=== PATIENT | male | born 1945 | race Caucasian/White ===

== ENCOUNTER → 2023-09-25 | Outpatient (CLI) | payer OTHER ==
[~2023-09-25] MED LIST: AUD IH; AZIT500T2 PO; GUAI600T50 PO
[2023-09-25] MEDS: REGADENOSON 0.4 MG/5 ML PF SYG IVP SCH (10:27)
== END | disposition home or self-care (01) ==
LOC: EDSEX 08:22 → RAH 08:22
PROVIDERS: ATTEND Internal Medicine Cardiovascular Disease
DX: I25.10 Atherosclerotic heart disease of native coronary artery without angina pectoris (principal)
CPT/HCPCS: 78452; 96374; 93017; J2785; A9500 ×2

== ENCOUNTER 2023-09-26 15:40 | Emergency (ER) | payer OTHER ==
[~2023-09-26] VITALS: Ht 172.7 cm; Wt 88.5 kg
[2023-09-26 16:01] LABS: BASOPHILS # (AUTO) 0.05 K/uL (0.00-0.20); BASOPHILS % (AUTO) 0.5 % (0.0-5.0); EOSINOPHILS # (AUTO) 0.65 K/uL (0.00-0.70); EOSINOPHILS % (AUTO) 6.1 % (0.0-8.0); HEMATOCRIT 33.1 % (42-54); IMMATURE GRANULOCYTE ABSOLUTE 0.07 K/uL (0-1); LYMPHOCYTES # (AUTO) 0.8 K/uL (1.0-4.8); LYMPHOCYTES % (AUTO) 7.1 % (21.0-51.0); MEAN CORPUSCULAR HEMOGLOBIN 34.1 pg (27.0-33.0); MEAN CORPUSCULAR HGB CONC 33.2 g/dL (32.0-36.0); MEAN CORPUSCULAR VOLUME 102.5 fL (79-99); MONOCYTES # (AUTO) 0.7 K/uL (0.1-1.0); MONOCYTES % (AUTO) 6.8 % (3.0-13.0); NEUTROPHILS # (AUTO) 8.4 K/uL (1.8-7.7); NEUTROPHILS % (AUTO) 78.8 % (40.0-77.0); PLATELET COUNT (AUTO) 225 K/uL (130-400); RED BLOOD CELL COUNT(AUTO) 3.23 MIL/uL (4.50-6.20); RED CELL DISTRIBUTION WIDTH 14.2 % (11.0-15.5); WHITE BLOOD COUNT (AUTO) 10.7 K/uL (4.8-10.8)
[2023-09-26 16:12] LABS: CREATININE 1.8 mg/dL (0.5-1.5); POTASSIUM 3.7 mmol/L (3.5-5.1)
[2023-09-26 16:17] LABS: ALBUMIN 3.7 g/dL (3.5-5.0); BILIRUBIN,TOTAL 0.3 mg/dL (0.2-1.0); TOTAL PROTEIN, SERUM 7.5 g/dL (6.0-8.3)
[2023-09-26 16:27] LABS: RAPID GROUP A STREP negative (NEGATIVE)
[2023-09-26] MEDS: AZITHROMYCIN 250 MG TABLET PO ONE (16:35)
[2023-09-26] MEDS: GUAIFENESIN 600 MG TABLET.ER PO ONE (16:35)
[2023-09-26] MEDS: ASPIRIN 325MG TAB PO ONE (16:35)
[2023-09-26 16:36] LABS: SARS-CoV-2, RNA, NAAT NEGATIVE SARS CoV-2 (NEGATIVE)
[2023-09-26] MEDS: NITROGLYCERIN 1GM OINT 1 INCH/1GM TD ONE (16:37)
[2023-09-26 16:41] LABS: INFLUENZA TYPE A Negative For Type A (NEGATIVE); INFLUENZA TYPE B Negative For Type B (NEGATIVE)
[2023-09-26 16:54] VITALS: BP 172/63; O2SAT 96
[2023-09-26] MEDS: ALBUTEROL 0.083% 2.5 MG/3 ML INH IH ONE (17:13)
[2023-09-26 17:14] VITALS: PULSE 79; RESP 18
[2023-09-26] MEDS ORDERED: GUAI600T50 PO (18:20)
[2023-09-26] MEDS ORDERED: AZIT500T2 PO (18:20)
[2023-09-26] MEDS ORDERED: AUD IH (18:20)
== END 2023-09-26 18:45 | disposition home or self-care (01) ==
LOC: EDH 15:40
DX: J20.8 Acute bronchitis due to other specified organisms (principal); E11.9 Type 2 diabetes mellitus without complications; E78.00 Pure hypercholesterolemia, unspecified; I10 Essential (primary) hypertension; Z90.49 Acquired absence of other specified parts of digestive tract; Z20.822 Contact with and (suspected) exposure to COVID-19
CPT/HCPCS: 36415; 71045; 71250; 80053; 85025; 87635; 87804; 87880; 93005; 94640

== ENCOUNTER 2023-10-19 10:32 | Day surgery (SDC) | payer OTHER ==
[2023-10-19] VITALS (16 sets, daily range): BP systolic 129–180; BP diastolic 44–74; PULSE 52–64; RESP 15–20
[~2023-10-19] VITALS: Ht 162.6 cm; Wt 87.3 kg
[~2023-10-19 10:32] MED LIST changes: +ALLO100T PO; +ASPI-1005 PO; +ATOR40TA71 PO; -AUD IH; -AZIT500T2 PO; +CETI10TA57 PO; +FERR324T4 PO; +FOLI0.8T2 PO; +FURO20TA4 PO; -GUAI600T50 PO; +INSU100C6 SQ; +LEVO112T7 PO; +METO-391 PO; +MIRT-22 PO; +PANT40TA54 PO; +PRAZ1CAP5 PO; +SEVE800T27 PO
[2023-10-19 11:14] LABS: HEMATOCRIT 35.7 % (36-48); MEAN CORPUSCULAR HGB CONC 32.2 g/dL (32.0-36.0); MEAN CORPUSCULAR VOLUME 102.6 fL (79-99); RED BLOOD CELL COUNT(AUTO) 3.48 MIL/uL (4.00-5.50); RED CELL DISTRIBUTION WIDTH 12.8 % (11.0-15.5); WHITE BLOOD COUNT (AUTO) 6.8 K/uL (4.8-10.8)
[2023-10-19 11:22] LABS: CREATININE 2.5 mg/dL (0.5-1.0); POTASSIUM 4.4 mmol/L (3.5-5.1)
[2023-10-19 11:38] LABS: INR <= 0.93 (0.85-1.15); PROTHROMBIN TIME 10.4 SEC (9.6-11.6)
[2023-10-19] MEDS ORDERED: CEFAZOLIN SODIUM 1 GM VIAL ONE (11:54)
[2023-10-19] MEDS: CEFAZOLIN SODIUM 2 GM VIAL ONE (12:36)
[2023-10-19] MEDS: 0.9% NACL 500ML IV.SOLN 500 ML IV ONE (12:36)
[2023-10-19] MEDS ORDERED: FENTANYL CITRATE PF 50 MCG/1 ML 2ML VIAL ONE (12:44)
[2023-10-19] MEDS ORDERED: ROCURONIUM BROMIDE 10MG/1ML 5ML VL ONE (12:44)
[2023-10-19] MEDS ORDERED: PROPOFOL 10 MG/ML 20ML VIAL IV ONE (12:44)
[2023-10-19] MEDS ORDERED: LIDOCAINE PF 100MG/5ML (2%) SYRINGE 5ML ONE (12:44)
[2023-10-19] MEDS: LIDOCAINE HCL 1% 20 ML VIAL ONE (13:15)
[2023-10-19] MEDS: BUPIVACAINE/PF 0.5% 30ML VIAL ONE (13:15)
[2023-10-19] MEDS ORDERED: ONDANSETRON 4MG INJ ONE (13:31)
[2023-10-19] MEDS: ONDANSETRON 4MG INJ ONE (14:41)
== END 2023-10-19 15:25 | disposition home or self-care (01) ==
LOC: EDSEX 10:32 → DAH 10:32
PROVIDERS: ATTEND Thoracic Surgery (Cardiothoracic Vascular Surgery)
DX: E11.22 Type 2 diabetes mellitus with diabetic chronic kidney disease (principal); I12.0 Hypertensive chronic kidney disease with stage 5 chronic kidney disease or end stage renal disease; N18.6 End stage renal disease; I45.10 Unspecified right bundle-branch block; F17.200 Nicotine dependence, unspecified, uncomplicated; E78.5 Hyperlipidemia, unspecified; J43.9 Emphysema, unspecified; E03.9 Hypothyroidism, unspecified; M19.90 Unspecified osteoarthritis, unspecified site; Z79.01 Long term (current) use of anticoagulants; Z79.899 Other long term (current) drug therapy; Z90.710 Acquired absence of both cervix and uterus; Z90.49 Acquired absence of other specified parts of digestive tract; Z79.82 Long term (current) use of aspirin; Z99.2 Dependence on renal dialysis
CPT/HCPCS: 36821; 80048; 85027; 85610; 85730; 86850; 86900; 86901; 82948 ×2; 36415; 71045; 93005; A4663; A6207; J7030; A4452; J7040; J3010; J0690 ×2; J3490; J2001; J2704; J2405 ×2; J0665; J1644; A4649 ×2; C1713 ×2; A4930 ×2; A4215; A4223; A4222; A4221; G0168

== ENCOUNTER 2023-10-30 12:53 | Emergency (ER) | payer OTHER ==
[~2023-10-30] VITALS: Ht 172.7 cm; Wt 87.5 kg
[2023-10-30 14:48] LABS: BASOPHILS # (AUTO) 0.03 K/uL (0.00-0.20); BASOPHILS % (AUTO) 0.5 % (0.0-5.0); EOSINOPHILS # (AUTO) 0.43 K/uL (0.00-0.70); EOSINOPHILS % (AUTO) 7.7 % (0.0-8.0); HEMATOCRIT 32.3 % (36-48); IMMATURE GRANULOCYTE ABSOLUTE 0.02 K/uL (0-1); LYMPHOCYTES # (AUTO) 0.9 K/uL (1.0-4.8); LYMPHOCYTES % (AUTO) 16.8 % (21.0-51.0); MEAN CORPUSCULAR HEMOGLOBIN 32.3 pg (27.0-33.0); MEAN CORPUSCULAR HGB CONC 31.9 g/dL (32.0-36.0); MEAN CORPUSCULAR VOLUME 101.3 fL (79-99); MONOCYTES # (AUTO) 0.6 K/uL (0.1-1.0); MONOCYTES % (AUTO) 11.3 % (3.0-13.0); NEUTROPHILS # (AUTO) 3.5 K/uL (1.8-7.7); NEUTROPHILS % (AUTO) 63.3 % (40.0-77.0); PLATELET COUNT (AUTO) 241 K/uL (130-400); RED BLOOD CELL COUNT(AUTO) 3.19 MIL/uL (4.00-5.50); RED CELL DISTRIBUTION WIDTH 13.1 % (11.0-15.5); WHITE BLOOD COUNT (AUTO) 5.6 K/uL (4.8-10.8)
[2023-10-30 15:03] LABS: CREATININE 2.4 mg/dL (0.5-1.0)
[2023-10-30 15:09] LABS: INR <= 0.93 (0.85-1.15)
[2023-10-30 15:10] LABS: ALBUMIN 3.4 g/dL (3.5-5.0); BILIRUBIN,TOTAL 0.3 mg/dL (0.2-1.0); PARTIAL THROMBOPLASTIN TIME 30.5 SEC (26.3-35.5); TOTAL PROTEIN, SERUM 7.2 g/dL (6.0-8.3)
[2023-10-30 15:35] VITALS: BP 174/73; PULSE 71; RESP 15; O2SAT 96
[2023-10-30] MEDS: ALTEPLASE 2MG VIAL 2 MG/VIAL VIAL IVCATH ONE ×2 (17:09→17:10)
== END 2023-10-30 17:24 | disposition left against medical advice (07) ==
LOC: EDH 12:53
DX: T82.49XA Other complication of vascular dialysis catheter, initial encounter (principal); E11.9 Type 2 diabetes mellitus without complications; E78.00 Pure hypercholesterolemia, unspecified; I10 Essential (primary) hypertension; Z79.4 Long term (current) use of insulin; Z79.82 Long term (current) use of aspirin; Z90.49 Acquired absence of other specified parts of digestive tract; Z90.710 Acquired absence of both cervix and uterus; V00-Y99 External causes of morbidity; Y92.89 Other specified places as the place of occurrence of the external cause
CPT/HCPCS: 36415; 80053; 85025; 85610; 85730; J2997; J1644

== ENCOUNTER 2023-10-31 15:05 | Emergency (ER) | payer MEDICARE, OTHER ==
[~2023-10-31] VITALS: Ht 172.7 cm; Wt 88.0 kg
[2023-10-31 15:13] VITALS: BP 165/74; PULSE 82; RESP 16
[2023-10-31 16:52] LABS: HEMATOCRIT 31.7 % (36-48); MEAN CORPUSCULAR HEMOGLOBIN 33.3 pg (27.0-33.0); MEAN CORPUSCULAR HGB CONC 33.1 g/dL (32.0-36.0); MEAN CORPUSCULAR VOLUME 100.6 fL (79-99); RED BLOOD CELL COUNT(AUTO) 3.15 MIL/uL (4.00-5.50); RED CELL DISTRIBUTION WIDTH 13.2 % (11.0-15.5); WHITE BLOOD COUNT (AUTO) 6.2 K/uL (4.8-10.8)
[2023-10-31 16:57] LABS: CREATININE 2.2 mg/dL (0.5-1.0)
[2023-10-31 17:01] LABS: ALBUMIN 3.4 g/dL (3.5-5.0); BILIRUBIN,TOTAL 0.3 mg/dL (0.2-1.0); TOTAL PROTEIN, SERUM 7.3 g/dL (6.0-8.3)
== END 2023-10-31 18:34 | disposition left against medical advice (07) ==
LOC: EDH 15:05
DX: T82.41XA Breakdown (mechanical) of vascular dialysis catheter, initial encounter (principal); I12.9 Hypertensive chronic kidney disease with stage 1 through stage 4 chronic kidney disease, or unspecified chronic kidney disease; E11.22 Type 2 diabetes mellitus with diabetic chronic kidney disease; N18.9 Chronic kidney disease, unspecified; E78.00 Pure hypercholesterolemia, unspecified; Z79.4 Long term (current) use of insulin; Z79.82 Long term (current) use of aspirin; Z90.49 Acquired absence of other specified parts of digestive tract; Z90.710 Acquired absence of both cervix and uterus
CPT/HCPCS: 36415; 80053; 85027

== ENCOUNTER 2024-02-02 11:42 | Observation (INO) | payer OTHER ==
[~2024-02-02] VITALS: Ht 167.6 cm; Wt 93.0 kg
[2024-02-02] VITALS (17 sets, daily range): BP systolic 102–154; BP diastolic 41–103; PULSE 54–73; RESP 18–24; TEMP 96.9–97; O2SAT 97
[2024-02-02 12:45] LABS: BASOPHILS # (AUTO) 0.03 K/uL (0.00-0.20); BASOPHILS % (AUTO) 0.2 % (0.0-5.0); EOSINOPHILS # (AUTO) 0.01 K/uL (0.00-0.70); EOSINOPHILS % (AUTO) 0.1 % (0.0-8.0); HEMATOCRIT 27.5 % (36-48); IMMATURE GRANULOCYTE ABSOLUTE 0.15 K/uL (0-1); LYMPHOCYTES # (AUTO) 1.2 K/uL (1.0-4.8); LYMPHOCYTES % (AUTO) 9.3 % (21.0-51.0); MEAN CORPUSCULAR HGB CONC 30.5 g/dL (32.0-36.0); MEAN CORPUSCULAR VOLUME 98.2 fL (79-99); MONOCYTES # (AUTO) 1.7 K/uL (0.1-1.0); MONOCYTES % (AUTO) 12.9 % (3.0-13.0); NEUTROPHILS # (AUTO) 10.2 K/uL (1.8-7.7); NEUTROPHILS % (AUTO) 76.4 % (40.0-77.0); NUCLEATED RED BLOOD CELLS 0.5 % (0.0-0.19); PLATELET COUNT (AUTO) 330 K/uL (130-400); RED CELL DISTRIBUTION WIDTH 18.6 % (11.0-15.5); WHITE BLOOD COUNT (AUTO) 13.3 K/uL (4.8-10.8)
[2024-02-02 12:59] LABS: ALBUMIN 3.8 g/dL (3.5-5.0); BILIRUBIN,TOTAL 1.1 mg/dL (0.2-1.0); CREATININE 4.7 mg/dL (0.5-1.0); TOTAL PROTEIN, SERUM 7.7 g/dL (6.0-8.3)
[2024-02-02 13:02] LABS: POTASSIUM 7.7 mmol/L (3.5-5.1)
[2024-02-02] MEDS ORDERED: TRAMADOL HCL 50 MG TABLET PO PRN (13:30)
[2024-02-02] MEDS ORDERED: HYDRALAZINE 20MG/ML VIAL IV PRN (13:30)
[2024-02-02] MEDS: DEXTROSE 50%-WATER 25 GM/50 ML VIAL IV ONE (13:30)
[2024-02-02] MEDS ORDERED: OXYCODONE/ACETAMIN 5/325MG TAB PO PRN (13:30)
[2024-02-02] MEDS: ONDANSETRON 4MG INJ IVP ONE (13:30)
[2024-02-02] MEDS ORDERED: MAGNESIUM 2GM PREMIX 50ML 50 ML IV PRN (13:30)
[2024-02-02] MEDS ORDERED: DEXTROSE 50%-WATER 50 ML DISP.SYRIN IV PRN (13:30)
[2024-02-02] MEDS ORDERED: GLUCAGON 1MG KIT 1 MG ML IM PRN (13:30)
[2024-02-02] MEDS ORDERED: ALBUTEROL 0.083% 2.5 MG/3 ML INH IH SCH (13:30)
[2024-02-02] MEDS: MORPHINE 2 MG SYG IVP ONE (13:31)
[2024-02-02] MEDS: KAYEXALATE 15GM/60ML PO SCH (13:31)
[2024-02-02] MEDS: CALCIUM GLUC 1GM 1 GM in 0.9%NACL 100ML 100 ML IV ONE (13:31)
[2024-02-02] MEDS: ALBUTEROL 0.083% 2.5 MG/3 ML INH IH ONE (13:34)
[2024-02-02] MEDS: INSULIN HUMULIN R 100 UNIT/ML 3ML IV ONE (13:52)
[2024-02-02] MEDS: DEXTROSE 50%-WATER 50 ML DISP.SYRIN IV ONE (13:53)
[2024-02-02] MEDS ORDERED: VANCOMYCIN PROTOCOL PER PHARMACY IV SCH (16:00)
[2024-02-02] MEDS: INSULIN HUMULIN R 100 UNIT/ML 3ML SQ SCH (16:30)
[2024-02-02] MEDS: 0.9%NACL 1000ML 1,000 ML IV SCH (17:04)
[2024-02-02] MEDS: HEPARIN 5,000 UNIT VIAL IJ SCH ×2 (17:07→20:50)
[2024-02-02] MEDS: KAYEXALATE 15GM/60ML ONE (17:08)
[2024-02-02] MEDS: EPOETIN ALFA-EPBX (NON-ESRD) 10,000 UNIT/ML VIAL SQ SCH (17:09)
[2024-02-02] MEDS: VANCOMYCIN 1.75 GM/250 ML BAG 250 ML IV ONE (17:09)
[2024-02-02] MEDS: SEVELAMER HCL 800 MG TABLET PO SCH (17:10)
[2024-02-02] MEDS ORDERED: GENT30OI2 TP (19:11)
[2024-02-02] MEDS ORDERED: LEVO125C4 PO (19:11)
[2024-02-02] MEDS ORDERED: GABA300C PO (19:11)
[2024-02-02] MEDS ORDERED: TORS20TA4 PO (19:11)
[2024-02-02] MEDS ORDERED: METO-409 PO (19:11)
[2024-02-02] MEDS ORDERED: TRAZ-185 PO (19:11)
[2024-02-02] MEDS ORDERED: METO-408 PO (19:11)
[2024-02-02] MEDS: ATORVASTATIN 40 MG TABLET PO SCH (20:45)
[2024-02-02] MEDS: Prazosin HCl 1 MG PO SCH (20:45)
[2024-02-02] MEDS: MIRTAZAPINE 15 MG TABLET PO SCH (20:45)
[2024-02-02] MEDS: FAMOTIDINE 20MG VIAL IV SCH (20:45)
[2024-02-02] MEDS: HEPARIN 5,000 UNIT VIAL SQ SCH (20:45)
[2024-02-02] MEDS: MIDODRINE HCL 5 MG TABLET PO SCH (20:45)
[2024-02-03] MEDS: LEVOTHYROXINE 112 MCG TABLET PO SCH (06:05)
[2024-02-03 06:36] LABS: HEPATITIS B SURFACE ANTIGEN Non-Reactive (Nonreactive)
[2024-02-03 06:37] LABS: HEPATITIS B CORE AB TOTAL Non-Reactive (Nonreactive); HEPATITIS B SURFACE ANTIBODY Positive (Reactive)
[2024-02-03] MEDS ORDERED: Vitamin B Complex/Vit C/Folic Acid PO SCH (09:00)
[2024-02-03] MEDS ORDERED: ALLOPURINOL 100 MG TABLET PO SCH (09:00)
[2024-02-03] MEDS ORDERED: ASPIRIN 81MG CHEW TAB PO SCH (09:00)
[2024-02-03] MEDS ORDERED: FUROSEMIDE 20 MG TABLET PO SCH (09:00)
[2024-02-03] MEDS ORDERED: PANTOPRAZOLE 40 MG TAB DR PO SCH (09:00)
[2024-02-03] MEDS ORDERED: CETIRIZINE HCL 5 MG TABLET PO SCH (09:00)
[2024-02-03] MEDS ORDERED: METOPROLOL SUCCINATE 25 MG TAB.SR.24H PO SCH (09:00)
[2024-02-03] MEDS ORDERED: FERROUS SULFATE 325 MG TABLET.DR PO SCH (09:00)
[2024-02-03] MEDS ORDERED: VANCOMYCIN 750MG VIAL IVPB SCH (16:00)
== END 2024-02-03 06:54 | disposition left against medical advice (07) ==
LOC: EDH 11:42 → INTOOBSV 13:30 → EDHIP 13:30
PROVIDERS: ADMIT Hospitalist; ATTEND Hospitalist
DX: I12.0 Hypertensive chronic kidney disease with stage 5 chronic kidney disease or end stage renal disease (principal); E11.22 Type 2 diabetes mellitus with diabetic chronic kidney disease; N18.6 End stage renal disease; E87.6 Hypokalemia; E11.649 Type 2 diabetes mellitus with hypoglycemia without coma; D63.1 Anemia in chronic kidney disease; K59.00 Constipation, unspecified; E03.9 Hypothyroidism, unspecified; E66.01 Morbid (severe) obesity due to excess calories; K29.70 Gastritis, unspecified, without bleeding; E78.00 Pure hypercholesterolemia, unspecified; E87.5 Hyperkalemia; E87.1 Hypo-osmolality and hyponatremia; R00.1 Bradycardia, unspecified; D72.829 Elevated white blood cell count, unspecified; I95.9 Hypotension, unspecified; R79.89 Other specified abnormal findings of blood chemistry; F17.210 Nicotine dependence, cigarettes, uncomplicated; I25.2 Old myocardial infarction; I51.7 Cardiomegaly; I48.91 Unspecified atrial fibrillation; R62.7 Adult failure to thrive; S41.112A Laceration without foreign body of left upper arm, initial encounter; S41.111A Laceration without foreign body of right upper arm, initial encounter; S81.812A Laceration without foreign body, left lower leg, initial encounter; S81.811A Laceration without foreign body, right lower leg, initial encounter; S20.219A Contusion of unspecified front wall of thorax, initial encounter; I25.10 Atherosclerotic heart disease of native coronary artery without angina pectoris; Z99.2 Dependence on renal dialysis; Z79.4 Long term (current) use of insulin; Z90.49 Acquired absence of other specified parts of digestive tract; Z88.8 Allergy status to other drugs, medicaments and biological substances; Z90.710 Acquired absence of both cervix and uterus; Z68.33 Body mass index [BMI] 33.0-33.9, adult; W01.0XXA Fall on same level from slipping, tripping and stumbling without subsequent striking against object, initial encounter; Y93.89 Activity, other specified; Y92.89 Other specified places as the place of occurrence of the external cause; Y99.8 Other external cause status
CPT/HCPCS: 96372; 96366; 96375 ×2; 96367; 84484; 80053; 85025; 87040 ×4; 87086; 87186; 82948 ×2; 86706; 87340; 86704; 36415; 71045; 70450; 74176; 93880; 96365; 99291; 93005; 94640; 90935; G0378 ×13; J3490; J2270; J7070 ×2; J0612; J2405; J1644 ×3; J1815; Q5106; J3370; G0257

== ENCOUNTER → 2024-05-30 | Outpatient (CLI) | payer OTHER ==
[~2024-05-30] MED LIST changes: -FERR324T4 PO; -FOLI0.8T2 PO; +FOLI0.8T53 PO; -FURO20TA4 PO; +GABA300C PO; -INSU100C6 SQ; +LEVO112C4 PO; -LEVO112T7 PO; -MIRT-22 PO; +MIRT-93 PO; -PANT40TA54 PO; -PRAZ1CAP5 PO; -SEVE800T27 PO
== END | disposition home or self-care (01) ==
LOC: SHCH 08:49
PROVIDERS: ATTEND Internal Medicine Cardiovascular Disease
DX: I08.3 Combined rheumatic disorders of mitral, aortic and tricuspid valves (principal); I11.9 Hypertensive heart disease without heart failure; I42.9 Cardiomyopathy, unspecified; I48.91 Unspecified atrial fibrillation; E11.9 Type 2 diabetes mellitus without complications; E78.5 Hyperlipidemia, unspecified
CPT/HCPCS: 93306

== ENCOUNTER 2024-06-17 11:42 | Emergency (ER) | payer OTHER ==
[~2024-06-17] VITALS: Ht 172.7 cm; Wt 93.9 kg
--- NOTE | 2024-06-17 12:00 | ERN ---
ED Note History of Present Illness Stated Complaint: WEAKNESS Chief Complaint: Weakness Time Seen by MD: 11:45 Dictation: PATIENT IS A 79-YEAR-OLD FEMALE COMING IN TODAY FROM HOME VIA EMS WITH COMPLAINTS OF HAVING A NEAR SYNCOPAL EPISODE ONSET AT 04:00 HOURS LAST NIGHT. PER EMS, PATIENT WAS GETTING READY TO START HER HOME HEMODIALYSIS WITH A LEFT FISTULA THAT IS IN PLACE WITH A SON WHO WAS AT HOME TOLD EMS THAT SHE HAD A NEAR SYNCOPAL EPISODE. SHE DID NOT LOSE CONSCIOUSNESS NO NAUSEA VOMITING NO CHEST PAIN NO BACK PAIN. HE DID NOT NOTIFY EMS WHEN SHE HAD THE SYNCOPAL EPISODE AND INSTEAD CALLED THIS MORNING. YOUR BURNING Allergies: Coded Allergies: carisoprodol (Unverified Allergy, Unknown, 09/25/23) nicotine (Unverified Allergy, Unknown, RASH, 05/23/24) SKIN BREAKDOWN Home Meds Reported Medications Folic Acid/Vit B Complex and C (Nephro Vitamins Tablet) 0.8 Mg Tablet, 0.8 MG PO DAILY, TAB 05/22/24 Metoprolol Succinate (Metoprolol Succinate) 50 Mg Tab.er.24h, 50 MG PO DAILY, TAB 04/18/24 Levothyroxine Sodium (Levothyroxine) 112 Mcg Capsule, 112 MCG PO DAILY, CAP 04/18/24 Mirtazapine (Mirtazapine) 30 Mg Tablet, 30 MG PO HS, TAB 04/18/24 Gabapentin (Neurontin) 300 Mg Capsule, 300 MG PO HS, CAP 02/02/24 Allopurinol (Allopurinol) 100 Mg Tablet, 100 MG PO AM, TAB 10/16/23 Cetirizine HCl (Cetirizine HCl) 10 Mg Tablet, 10 MG PO AM, TAB 10/16/23 Aspirin (ASPIRIN 81MG CHEW TAB) 81 Mg Tab.chew, 81 MG PO DAILY, TAB.CHEW 10/16/23 Atorvastatin Calcium (Atorvastatin Calcium) 40 Mg Tablet, 40 MG PO HS, TAB 10/16/23 Past Medical History Past Medical History: High Cholesterol, Hypertension, Other Additional Past Medical Hx: CKD ON DIALYSIS Surgical History: Hysterectomy, Cholecystectomy, LAVA Surgical History Other: L ARM FISTULA Family History: Negative Social History: Smokers History: Not Applicable RN Note Reviewed/Agreed w/PFSH: Yes Review of System Dictation CONSTITUTIONAL: NEGATIVE EXCEPT FOR HPI NEAR-SYNCOPE HEAD/FACE: NEGATIVE EXCEPT FOR HPI EENT: NEGATIVE EXCEPT FOR HPI RESPIRATORY: NEGATIVE EXCEPT FOR HPI GASTROINTESTINAL/ABDOMINAL: NEGATIVE EXCEPT FOR HPI GENITOURINARY: NEGATIVE EXCEPT FOR HPI MUSCULOSKELETAL: NEGATIVE EXCEPT FOR HPI INTEGUMENTARY: NEGATIVE EXCEPT FOR HPI LEFT ARM FISTULA WITH GOOD THRILL AND BRUIT NEUROLOGICAL/PSYCH: NEGATIVE EXCEPT FOR HPI HEMATOLOGIC/LYMPHATIC: NEGATIVE EXCEPT FOR HPI ALL SYSTEMS NEGATIVE, EXCEPT NOTED ABOVE. 13 POINT REVIEW OF SYSTEMS ASSESSED AND ALL NEGATIVE EXCEPT FOR ABOVE. Initial Vital Sign VS Vital Signs Date Time Temp Pulse Resp B/P (MAP) Pulse Ox O2 Delivery O2 Flow Rate FiO2 06/17/24 11:43 98.1 60 18 100/47 98 Room Air* 0 21 Physical Exam Dictation VITAL SIGNS REVIEWED NO PAIN AT THIS TIME GENERAL APPEARANCE: ALERT, ORIENTED X 3, NO ACUTE DISTRESS, WELL DEVELOPED, NOURISHED. HEAD AND FACE: NON-TRAUMATIC. EYES: PERRL, PINK CONJUNCTIVAS, EYELID NO TRAUMA, ANTERIOR CHAMBER WITH ARCUS SENILIS. EARS: PINNAS INTACT AND NO SIGNS OF TRAUMA OR ERYTHEMA EAR CANALS CLEAR AND NO DISCHARGE TM NO ERYTHEMA NOSE: NO DISCHARGE, NO BLEEDING. OROPHARYNX: MOUTH NORMAL, TONGUE PINK, PHARYNX CLEAR,NO ERYTHEMA, TONSILS NO EXUDATES, NO ABSCESSES NOTED, MUCOUS MEMBRANE MOIST NECK: SUPPLE, NON-TENDER, NO THYROMEGALY, NO MASSES, NO JVD, NO BRUITS BREAST:DEFERRED CHEST:NO TENDERNESS, NO CREPITUS, NO PARADOXICAL MOVEMENT, NO RETRACTIONS LUNGS:CLEAR, WELL-VENTILATED, SYMMETRIC, NO RALES, NO WHEEZING, NO RHONCHI, NO STRIDOR, GOOD BREATH SOUNDS BILATERALLY HEART: REGULAR RATE, REGULAR RHYTHM, NO MURMUR, NO GALLOPS VASCULAR: LEFT ARM FISTULA WITH GOOD THRILL AND BRUIT NOTED ABDOMEN: SOFT, POSITIVE BOWEL SOUNDS, NONDISTENDED, NO GUARDING, NONTENDER, NO REBOUND, NO MASSES NO HEPATOMEGALY, NO SPLENOMEGALY, NO SAMUELS'S SIGN, NO HERNIAS. RECTAL: DEFERRED GENITAL: DEFERRED NEUROLOGICAL: NORMAL SPEECH, MOTOR FUNCTION INTACT, SENSORY FUNCTION INTACT MUSCULOSKELETAL: NECK NONTENDER, FULL RANGE OF MOTION, BACK NONTENDER, FULL RANGE OF MOTION, EXTREMITIES: NONTENDER, FULL RANGE OF MOTION SKIN: COLOR PINK, DRY, NO TURGOR, NO RASH, NO LACERATIONS, NO ABRASIONS, NO CON TUSIONS. LYMPHATIC: DEFERRED Results (Laboratory/Radiology) Laboratory/Radiology Laboratory Tests Test 06/17/24 12:34 White Blood Count 6.9 K/uL (4.8-10.8) Red Blood Count 2.39 MIL/uL (4.00-5.50) L Hemoglobin 7.6 g/dL (12.0-16.0) L Hematocrit 24.5 % (36-48) L Mean Corpuscular Volume 102.5 fL (79-99) H Mean Corpuscular Hemoglobin 31.8 pg (27.0-33.0) Mean Corpuscular Hemoglobin Concent 31.0 g/dL (32.0-36.0) L Red Cell Distribution Width 24.7 % (11.0-15.5) H Platelet Count 180 K/uL (130-400) Mean Platelet Volume 9.9 fL (7.5-10.5) Immature Granulocyte % (Auto) 0.6 % (0-1) Neutrophils (%) (Auto) 72.5 % (40.0-77.0) Lymphocytes (%) (Auto) 9.8 % (21.0-51.0) L Monocytes (%) (Auto) 10.4 % (3.0-13.0) Eosinophils (%) (Auto) 6.1 % (0.0-8.0) Basophils (%) (Auto) 0.6 % (0.0-5.0) Neutrophils # (Auto) 5.0 K/uL (1.8-7.7) Lymphocytes # (Auto) 0.7 K/uL (1.0-4.8) L Monocytes # (Auto) 0.7 K/uL (0.1-1.0) Eosinophils # (Auto) 0.42 K/uL (0.00-0.70) Basophils # (Auto) 0.04 K/uL (0.00-0.20) Absolute Immature Granulocyte (auto 0.04 K/uL (0-1) Nucleated Red Blood Cells 0.0 % (0.0-0.19) White Cell Morphology Comment See comments Red Blood Cell Morphology See comments Sodium Level 135 mmol/L (136-145) L Potassium Level 4.3 mmol/L (3.5-5.1) Chloride Level 96 mmol/L (101-111) L Carbon Dioxide Level 28 mmol/L (21-32) Blood Urea Nitrogen 67 mg/dL (7-18) H Creatinine 6.9 mg/dL (0.5-1.0) H Glomerular Filtration Rate Calc 6 mL/min (>90) Random Glucose 120 mg/dL (70-105) H Total Calcium 7.6 mg/dL (8.5-10.1) L Troponin I High Sensitivity 65 ng/L (4-50) *H CHEST 1VW REASON: SHORTNESS A BREATH COMPARISON: 05/22/2024 FINDINGS: Single view of the chest was obtained. Lungs are clear. There is borderline cardiomegaly. There is no pulmonary vascular congestion. Mediastinum and bony thorax appear unremarkable. IMPRESSION: 1. Borderline cardiomegaly, no acute finding. Labs Reviewed?: Yes EKG Comment: EKG SINUS RHYTHM/HEART RATE 62/WI [id number] MILLISECOND/LEFT FASCICULAR BLOCK NO ACUTE CHANGE ED Course ED Course Orders Procedure Category Date Status Time Cbc With Differential LAB 06/17/24 Complete 11:55 Troponin I High LAB 06/17/24 Complete Sensitivity 11:55 12 Lead Ekg Tracing- EKG 06/17/24 Complete Technical 11:55 Chest 1vw RAD 06/17/24 Resulted 11:55 Basic Metabolic Panel LAB 06/17/24 Complete 11:55 Vital Signs Date Time Temp Pulse Resp B/P (MAP) Pulse Ox O2 Delivery O2 Flow Rate FiO2 06/17/24 14:51 98.1 59 16 145/81 98 Room Air* 0 21 06/17/24 12:45 98.1 59 16 148/82 97 Room Air* 0 21 06/17/24 11:43 98.1 60 16 100/47 98 Room Air 0 06/17/24 11:43 98.1 60 18 100/47 98 Room Air* 0 21 THIRTEEN 50, CASE WAS DISCUSSED IN LENGTH PATIENT TO INCLUDE HER EKG TROPONIN AND LABS. SHE STATES SHE HAS NOT HAD ANY CHEST PAIN BACK PAIN NO SOB SHE DOES NOT WANT TO STAY IN THE HOSPITAL AT THIS TIME. NIH IS 0 AND SHE IS ALERT AND ORIENTED X4. I STRONGLY WARNED HER TO RETURN TO THE EMERGENCY ROOM IF ANY CHEST PAIN BACK PAIN OR CHANGES IN NEUROLOGIC STATUS SHE AGREED TO COME BACK HOWEVER AGAIN SHE INSISTED SHE DID NOT WANT TO BE ADMITTED TO THE HOSPITAL. HEART Score Response (Comments) Value EKG: Repolarization changes 1 Age: > 65yrs (+2) 2 Risk Factors: 1-2 risk factors (+1) 1 Initial Troponin: 1-3x Normal Limit (+1) 1 Total 5 Medical Decision Making MDM MDM: DIFFERENTIAL DIAGNOSIS: ACS AMI/NEAR-SYNCOPE/ELECTROLYTE IMBALANCE/DEHYDRATION /FLUID OVERLOAD RATIONALE: TESTS CONSIDERED AND ORDERED SECONDARY TO SHARED DECISION MAKING INCLUDE: EKG/LABS/RADIOLOGY PREVIOUS OUTSIDE RECORDS REVIEWED: OLD ER VISITS. REVIEWED RISK OF COMPLICATION AND/OR MORBIDITY OR MORTALITY OF PATIENT MANAGEMENT: NONE MEDICATIONS-PER MEDICATION RECONCILIATION NEED FOR HOSPITALIZATION: PATIENT DOES NOT MEET CRITERIA FOR HOSPITALIZATION. PATIENT WAS STRONGLY OFFERED TO BE ADMITTED FOR MILDLY ELEVATED TROPONIN AND NEAR-SYNCOPE, SHE SAID SHE WOULD LIKE TO GO HOME, ALERT AND ORIENTED X4 SPEECH CLEAR NEED FOR EMERGENCY MAJOR/MINOR SURGERY: NO THERE ARE NO SOCIAL CONCERNS WITH THIS PATIENT. PRESCRIPTION DRUG MANAGEMENT NONE PRESCRIPTIONS WILL INCLUDE SYMPTOMATIC CARE PATIENT'S PRIOR EXTERNAL MEDICAL RECORDS FROM OTHER ER VISITS WERE REVIEWED BY ME INDICATED. PRIOR TESTING AND RESULTS FROM PREVIOUS VISITS WERE REVIEWED. PRIOR TESTS WERE TAKEN INTO ACCOUNT WITH MEDICAL DECISION MAKING AND RESOURCE UTILIZATION, INDEPENDENT HISTORIAN/HISTORIANS WERE USED TO OBTAIN COMPLETE MEDICAL HISTORY. I INDEPENDENTLY INTERPRETED THE TEST THAT WERE PERFORMED, RESULTS WERE REVIEWED BY ME AND CONSIDERED FINDINGS ON RADIOLOGY IF ORDERED. MEDICAL MANAGEMENT AND EXAMINATION INTERPRETATION DISCUSSIONS WERE HAD BY ME WITH OTHER QUALIFIED HEALTHCARE PROFESSIONALS INDICATED FOR THE PATIENT'S CARE. DX & DISP Disposition: Discharge Departure Impression: Primary Impression: Vasovagal near syncope Additional Impressions: ESRD (end stage renal disease) on dialysis, Anemia, chronic renal failure, Elevated troponin level not due to acute coronary syndrome, Tobacco abuse Condition: Stable Additional Instructions: FOLLOW-UP WITH PRIMARY CARE PROVIDER IN 1 TO 2 DAYS. TAKE MEDICATIONS DIRECTED HERE IN THE EMERGENCY ROOM. OKAY TO CONTINUE HOME MEDICATIONS UNLESS OTHERWISE DISCUSSED DURING YOUR VISIT IN THE EMERGENCY ROOM TODAY. RETURN TO YOUR NEAREST EMERGENCY ROOM IF SYMPTOMS WORSEN OR IF THERE IS NO IMPROVEMENT. CALL 911 IF YOU NEED IMMEDIATE ASSISTANCE. TAKE TYLENOL OR MOTRIN [id number] NEEDED AND IF NO CONTRAINDICATIONS ARE PRESENT. INCREASE ORAL HYDRATION. A WOUND CULTURE OR URINE CULTURE WAS ORDERED HERE IN THE EMERGENCY ROOM DEPARTMENT PLEASE FOLLOW-UP WITH PRIMARY CARE PROVIDER AND ADVISE THEM TO GET REPEAT PORTS FROM OUR FACILITY. IF YOU HAD ANY EUGENIA WRAP/SPLINTS THAT WERE APPLIED HERE, PLEASE DO NOT REMOVE THEM UNTIL YOU SEE YOUR PRIMARY CARE OR SPECIALTY. RETURN TO THE EMERGENCY ROOM IMMEDIATELY IF ANY CHANGES IN NEUROLOGIC STATUS CHEST PAIN BACK PAIN OR SHORTNESS A BREATH. Referrals: ANUSHA TSE MD (PCP) Time of Disposition: 13:56 I have reviewed the case, and I agree with, Diagnosis and Plan ATTESTATION BY PHYSICIAN I PERFORMED THE SUBSTANTIVE PORTION OF THE VISIT. I HAVE REVIEWED AND PERSONALLY MADE AND APPROVED THE MANAGEMENT PLAN THAT IS DOCUMENTED IN THE NOTE BY MYSELF FOR THE A PP. I ACKNOWLEDGED FOR RESPONSIBILITY FOR THE PATIENT'S MANAGEMENT PLAN. PERCY MARIANO NP Jun 17, 2024 12:00 BRENDA PINA MD Jun 18, 2024 17:56
--- NOTE | 2024-06-17 12:53 | HMCIMG ---
CHEST 1VW REASON: SHORTNESS A BREATH COMPARISON: 05/22/2024 FINDINGS: Single view of the chest was obtained. Lungs are clear. There is borderline cardiomegaly. There is no pulmonary vascular congestion. Mediastinum and bony thorax appear unremarkable. IMPRESSION: 1. Borderline cardiomegaly, no acute finding.
[2024-06-17 12:59] LABS: BASOPHILS # (AUTO) 0.04 K/uL (0.00-0.20); BASOPHILS % (AUTO) 0.6 % (0.0-5.0); EOSINOPHILS # (AUTO) 0.42 K/uL (0.00-0.70); EOSINOPHILS % (AUTO) 6.1 % (0.0-8.0); HEMATOCRIT 24.5 % (36-48); IMMATURE GRANULOCYTE ABSOLUTE 0.04 K/uL (0-1); LYMPHOCYTES # (AUTO) 0.7 K/uL (1.0-4.8); LYMPHOCYTES % (AUTO) 9.8 % (21.0-51.0); MEAN CORPUSCULAR HEMOGLOBIN 31.8 pg (27.0-33.0); MEAN CORPUSCULAR VOLUME 102.5 fL (79-99); MONOCYTES # (AUTO) 0.7 K/uL (0.1-1.0); MONOCYTES % (AUTO) 10.4 % (3.0-13.0); NEUTROPHILS % (AUTO) 72.5 % (40.0-77.0); PLATELET COUNT (AUTO) 180 K/uL (130-400); RED BLOOD CELL COUNT(AUTO) 2.39 MIL/uL (4.00-5.50); RED CELL DISTRIBUTION WIDTH 24.7 % (11.0-15.5); WHITE BLOOD COUNT (AUTO) 6.9 K/uL (4.8-10.8)
[2024-06-17 13:07] LABS: CREATININE 6.9 mg/dL (0.5-1.0); POTASSIUM 4.3 mmol/L (3.5-5.1)
[2024-06-17 14:51] VITALS: BP 145/81; PULSE 59; RESP 16; TEMP 98.1; O2SAT 98
--- NOTE | 2024-06-17 21:43 | EKG ---
[facility] Test Date: 2024-06-17 Test Time: 12:38:34 Pat Name: ANJALI POOLE Department: ED Room: Gender: Female Rn Ante Partum: [id number] : 1945 Requested By: PERCY MARIANO Order Number: [id number] Reading MD: Measurements Intervals [place] Rate: 62 P: 13 WA: 275 QRS: -50 QRSD: 111 T: -68 QT: 482 QTc: 489 Interpretive Statements Sinus rhythm Prolonged WA interval Left anterior fascicular block Anterior infarct, old No previous ECG available for comparison Please click the below link to view image of tracing.
== END 2024-06-17 15:21 | disposition home or self-care (01) ==
LOC: EDH 11:42
DX: R55 Syncope and collapse (principal); I12.0 Hypertensive chronic kidney disease with stage 5 chronic kidney disease or end stage renal disease; N18.6 End stage renal disease; D63.1 Anemia in chronic kidney disease; E78.00 Pure hypercholesterolemia, unspecified; R79.89 Other specified abnormal findings of blood chemistry; F17.200 Nicotine dependence, unspecified, uncomplicated; I25.2 Old myocardial infarction; Z79.82 Long term (current) use of aspirin; Z79.890 Hormone replacement therapy; Z79.899 Other long term (current) drug therapy; Z90.49 Acquired absence of other specified parts of digestive tract; Z90.710 Acquired absence of both cervix and uterus; Z99.2 Dependence on renal dialysis
CPT/HCPCS: 36415; 71045; 80048; 84484; 85025; 93005; 99285

== ENCOUNTER 2024-09-04 13:11 | Emergency (ER) | payer OTHER ==
[~2024-09-04] VITALS: Ht 167.6 cm; Wt 97.1 kg
[~2024-09-04 13:11] MED LIST changes: +CALC0.253 PO; -LEVO112C4 PO; +LEVO125T95 PO; -METO-391 PO; +METO25TA3 PO; +MONT4TAB PO; +PANT40TA55 PO; +PRAZ1CAP5 PO; +SEVE0.8P PO; +VENL37.57 PO
--- NOTE | 2024-09-04 13:20 | NUR ---
TRAUMA DOWNGRADED BY DR PINA. PT DID NOT HIT HER HEAD AND DENIES LOC.
--- NOTE | 2024-09-04 14:44 | ERN ---
General Chief Complaint: Mechanical Fall Stated Complaint: FALL Time Seen by MD: 13:17 Source: patient, EMS History of Present Illness Initial Comments Patient is a 79-year-old female coming in to be evaluated for fall. Patient states that she has no complaints physical exam shows abrasions at this lopez of her lower extremities. She also states that she has been very sleepy lately but this is her chronic condition. She also states that she recently got her tetanus due to another fall. Allergies: Coded Allergies: carisoprodol (Unverified Allergy, Unknown, 09/25/23) nicotine (Unverified Allergy, Unknown, RASH, 05/23/24) SKIN BREAKDOWN Home Meds Active Scripts Pantoprazole Sodium (Protonix) 40 Mg Ectab, 1 TAB PO BID for 30 Days, #60 TAB 0 Refills Prov:LAURIE VIZCAINO MD 08/25/24 Sevelamer Carbonate (Renvela) 0.8 Gram Powd.pack, 1 PACKET PO TID for 30 Days, #90 PACKET 0 Refills Prov:LAURIE VIZCAINO MD 08/25/24 Venlafaxine HCl (Effexor Xr) 37.5 Mg Cap.er.24h, 37.5 MG PO BID, #60 [address]SULE.DR Prov:LAURIE VIZCAINO MD 08/25/24 Montelukast Sodium (Singulair) 4 Mg Tab.chew, 4 MG PO HS, #30 TAB.CHEW Prov:LAURIE VIZCAINO MD 08/25/24 Metoprolol Succinate (Toprol Xl) 25 Mg Tab.er.24h, 12.5 MG PO DAILY, #30 TAB Prov:LAURIE VIZCAINO MD 08/25/24 Reported Medications Prazosin HCl (Prazosin HCl) 1 Mg Capsule, 1 CAP PO HS for Nighmares for 30 Days, #30 CAP 0 Refills 08/06/24 Levothyroxine Sodium (Synthroid 125 Mcg Tab) 125 Mcg Tablet, 125 MCG PO DAILY, TAB 08/06/24 Calcitriol (Calcitriol) 0.25 Mcg Capsule, 1 CAP PO BID for 30 Days, #30 CAP 0 Refills 08/06/24 Folic Acid/Vit B Complex and C (Nephro Vitamins Tablet) 0.8 Mg Tablet, 0.8 MG PO DAILY, TAB 05/22/24 Mirtazapine (Mirtazapine) 30 Mg Tablet, 30 MG PO HS, TAB 04/18/24 Gabapentin (Neurontin) 300 Mg Capsule, 300 MG PO HS, CAP 02/02/24 Allopurinol (Allopurinol) 100 Mg Tablet, 100 MG PO AM, TAB 10/16/23 Cetirizine HCl (Cetirizine HCl) 10 Mg Tablet, 10 MG PO AM, TAB 10/16/23 Aspirin (ASPIRIN 81MG CHEW TAB) 81 Mg Tab.chew, 81 MG PO DAILY, TAB.CHEW 10/16/23 Atorvastatin Calcium (Atorvastatin Calcium) 40 Mg Tablet, 40 MG PO HS, TAB 10/16/23 Past Medical History Past Medical History: Arrythmia, CAD, COPD, Diabetes-Type II, High Cholesterol, Hypertension, Hypotension, Other Medical History Other: ESRD Past Surgical History: Appendectomy, Hysterectomy, Cholecystectomy, Pacer/AICD Surgical History Other: L ARM FISTULA Family History Family History: Negative Social History Social History: Smokers Female( History) History: Not Applicable ROS Dictation CONSTITUTIONAL: No chills, no fever, no weakness, no diaphoresis, no malaise. HEAD/FACE: No signs of trauma. EENT: No eye pain, no blurred vision, no tearing, no double vision, no ear pain, no ear discharge, no nose pain, no nasal congestion, no throat pain, no throat swelling, no mouth pain. RESPIRATORY: No cough, no orthopnea, no SOB, no stridor, no wheezing. CARDIOVASCULAR: No chest pain, no edema, no palpitations, no syncope. GASTROINTESTINAL/ABDOMINAL: No abdominal pain, no constipation, no diarrhea, no nausea, no vomiting. GENITOURINARY: No abnormal discharge, no dysuria, no frequent urination, no hematuria. No complaints of pain in the genitals. MUSCULOSKELETAL: No back pain, no gout, no joint pain, no joint swelling, no muscle pain, no muscle stiffness, no neck pain. INTEGUMENTARY: No change in color, no change in hair/nails, no dryness, lesion, no lumps, no rash. NEUROLOGICAL/PSYCH: No anxiety, not depressed, no emotional problem, no headache, no numbness, no pre-existing deficit, no history of seizures, no tremors, no weakness. HEMATOLOGIC/LYMPHATIC: Not anemic, no history of blood clots, no apparent bleeding, no bruising, glands not swollen. All Systems Negative, Except as Noted. Physical Exam Physical Exam Dictation VITAL SIGNS: Reviewed. GENERAL APPEARANCE: Alert, oriented x3, no acute distress, obese. HEAD AND FACE: Non-traumatic. EYES: PERRL, pink conjunctivas, eyelid no trauma, anterior chamber clear. EARS: Pinnas intact and no signs of trauma or erythema. Ear canals clear and no discharge. TMs no erythema. NOSE: No discharge, no bleeding. OROPHARYNX: Mouth normal, teeth no caries, tongue pink. Pharynx clear, no erythema. Tonsils no exudates, no abscesses noted. Mucous membrane moist. NECK: Supple, non-tender, no thyromegaly, no masses, no JVD, no bruits. BREAST: Deferred. CHEST: No tenderness, no crepitus, no paradoxical movement, no retractions. LUNGS: Clear, well-ventilated, symmetric, no rales, no wheezing, no rhonchi, no stridor, good breath sounds bilaterally. HEART: Regular rate, regular rhythm, no murmur, no gallops. VASCULAR: No peripheral edema. ABDOMEN: Soft, positive bowel sounds, nondistended, no guarding, nontender, no rebound, no masses no hepatomegaly, no splenomegaly, no Hsieh's sign, no hernias. RECTAL: Deferred. GENITAL: Deferred. NEUROLOGICAL: Normal speech, gross motor function intact, gross sensory function intact. MUSCULOSKELETAL: Neck nontender, full range of motion, back nontender, full range of motion. EXTREMITIES: Nontender, full range of motion. SKIN: Color pink, dry, no turgor, no rash, no lacerations, left lower extremity lopez abrasion, skin tear, no contusions. LYMPHATICS: Deferred. Results Laboratory and Microbiology Lab and Micro Result Laboratory Tests Test 09/04/24 15:52 Urine Color YELLOW (YELLOW) Urine Appearance CLOUDY (CLEAR) H Urine pH 5.5 (5.0-8.0) Urine Specific [place] 1.016 (1.001-1.031) Urine Protein 70 mg/dL (NEGATIVE) H Urine Glucose (UA) NEGATIVE mg/dL (NEGATIVE) Urine Ketones NEGATIVE mg/dL (NEGATIVE) Urine Occult Blood MODERATE (NEGATIVE) H Urine Nitrate NEGATIVE (NEGATIVE) Urine Bilirubin NEGATIVE mg/dL (NEGATIVE) Urine Urobilinogen 0.2 mg/dL (0.2-1.0) Urine Leukocyte Esterase 500 Papo/uL (NEGATIVE) H Urine RBC 11-25 /HPF (0-1) H Urine WBC TNTC /HPF (0-1) H Urine WBC Clumps (Auto) RARE /HPF (0-1) Urine Squamous Epithelial Cells MOD /HPF (0-2) Urine Bacteria FEW /HPF (None Seen) Urine Yeast MOD /HPF (None Seen) Labs Reviewed?: Yes MDM MDM: Differential diagnosis: Insomnia, fall, skin tear, uti Patient is a 79-year-old female coming in to be evaluated. Per patient she states he has no complaint on physical exam she has got a left lower extremity abrasion, skin tear which was cleaned dried and dressing was applied. Patient also states that she thinks she is falling more often because he does have a history of insomnia and does not sleep well. P.o. challenge tolerated no complaints. ED Course Orders Procedure Category Date Status Time Tetanus,Diphtheria PHA 09/04/24 Complete Tox [Adult] (Diphther 14:30 Wound Care (Er) CPOE 09/04/24 Transmitted 14:49 Urinalysis LAB 09/04/24 Complete W/Microscopic 14:58 Culture Urine DAVIN 09/04/24 Logged 16:15 Current Medications Medications (Trade) Dose Ordered Sig/Mahsa Route PRN Reason Start Time Stop Time Status Last Admin Dose Admin Tetanus/ Diphtheria Toxoids Adsorbed (DiphthERIA-teTANUS TOXOID [ADULT]/ DECAVAC) 0.5 ml ONCE ONCE IM 09/04/24 14:30 09/04/24 14:31 DC Vital Signs Date Time Temp Pulse Resp B/P (MAP) Pulse Ox O2 Delivery O2 Flow Rate FiO2 09/04/24 15:00 97.3 56 18 108/35 97 Room Air* 0 09/04/24 14:30 98.6 58 20 123/36 98 Nasal Cannula* 2 09/04/24 14:15 98.2 58 20 115/44 97 Nasal Cannula* 2 09/04/24 14:00 97.5 59 20 127/38 97 Room Air* 0 09/04/24 13:45 98.1 63 20 107/57 90 Room Air* 0 09/04/24 13:30 98.1 71 20 124/44 90 Room Air* 0 09/04/24 13:12 97.9 63 20 110/35 91 Room Air DX & DISP Disposition: Discharge Departure Impression: Primary Impression: UTI (urinary tract infection) Additional Impression: Skin tear Condition: Stable Scripts Cephalexin Monohydrate (Keflex) 500 Mg Cap 1 CAP PO BID for 10 Days, #20 CAP 0 Refills Prov: BRENDA PINA MD 09/04/24 Additional Instructions: FOLLOW-UP WITH PRIMARY CARE PROVIDER IN 1 TO 2 DAYS. TAKE MEDICATIONS DIRECTED HERE IN THE EMERGENCY ROOM. OKAY TO CONTINUE HOME MEDICATIONS UNLESS OTHERWISE DISCUSSED DURING YOUR VISIT IN THE EMERGENCY ROOM TODAY. RETURN TO YOUR NEAREST EMERGENCY ROOM IF SYMPTOMS WORSEN OR IF THERE IS NO IMPROVEMENT. CALL 911 IF YOU NEED IMMEDIATE ASSISTANCE. TAKE TYLENOL [id number] NEEDED AND IF NO CONTRAINDICATIONS ARE PRESENT. INCREASE ORAL HYDRATION. A WOUND CULTURE OR URINE CULTURE WAS ORDERED HERE IN THE EMERGENCY ROOM DEPARTMENT PLEASE FOLLOW-UP WITH PRIMARY CARE PROVIDER AND ADVISE THEM TO GET REPEAT PORTS FROM OUR FACILITY. IF YOU HAD ANY EUGENIA WRAP/SPLINTS THAT WERE APPLIED HERE, PLEASE DO NOT REMOVE THEM UNTIL YOU SEE YOUR PRIMARY CARE OR SPECIALTY. Referrals: Referrals: ANUSHA TSE MD (PCP) Time of Disposition: 16:24 BRENDA PINA MD Sep 04, 2024 14:44
--- NOTE | 2024-09-04 16:07 | NUR ---
WOUND CARE TO LLE WITH SKINTEGRITY AND NS, APPLIED NON ADHERENT DRESSING AND PAPER TAPE. PT TOLERATED WELL.
[2024-09-04 16:14] LABS: APPEARANCE,URINE CLOUDY (CLEAR); BACTERIA,URINE FEW /HPF (None Seen); BILIRUBIN,URINE NEGATIVE (NEGATIVE); COLOR,URINE YELLOW (YELLOW); GLUCOSE, URINE (UA) NEGATIVE (NEGATIVE); KETONES,URINE NEGATIVE (NEGATIVE); LEUKOCYTE ESTERASE ,URINE 500 Leu/uL (NEGATIVE); NITRATE,URINE NEGATIVE (NEGATIVE); OCCULT BLOOD,URINE MODERATE (NEGATIVE); PH,URINE 5.5 (5.0-8.0); PROTEIN,URINE 70 mg/dL (NEGATIVE); SQUAMOUS EPITHELIAL CELL,UR MOD /HPF (0-2); UROBILINOGEN,URINE 0.2 mg/dL (0.2-1.0); WBC CLUMP RARE /HPF (0-1); WBC,URINE TNTC /HPF (0-1); YEAST,URINE BUDDING MOD /HPF (None Seen)
[2024-09-04] MEDS ORDERED: CEPH500B PO (16:26)
[2024-09-04] MEDS: teTANUS/diphthERIA TOXOID [ADULT] 0.5 ML VIAL IM ONE (16:28)
[2024-09-04 16:30] VITALS: BP 105/39; PULSE 65; RESP 18; TEMP 98; O2SAT 97
== END 2024-09-04 17:05 | disposition home or self-care (01) ==
LOC: EDH 13:11
DX: S81.812A Laceration without foreign body, left lower leg, initial encounter (principal); N39.0 Urinary tract infection, site not specified; I12.0 Hypertensive chronic kidney disease with stage 5 chronic kidney disease or end stage renal disease; E11.22 Type 2 diabetes mellitus with diabetic chronic kidney disease; N18.6 End stage renal disease; Z99.2 Dependence on renal dialysis; I25.10 Atherosclerotic heart disease of native coronary artery without angina pectoris; J44.9 Chronic obstructive pulmonary disease, unspecified; E78.00 Pure hypercholesterolemia, unspecified; F17.200 Nicotine dependence, unspecified, uncomplicated; Z79.82 Long term (current) use of aspirin; Z79.890 Hormone replacement therapy; Z79.899 Other long term (current) drug therapy; Z90.49 Acquired absence of other specified parts of digestive tract; Z90.710 Acquired absence of both cervix and uterus; Z95.810 Presence of automatic (implantable) cardiac defibrillator; W18.39XA Other fall on same level, initial encounter; Y93.89 Activity, other specified; Y92.89 Other specified places as the place of occurrence of the external cause; Y99.8 Other external cause status
CPT/HCPCS: 81001; 87086; 90471; 90714; 99285

== ENCOUNTER → 2024-09-30 | Outpatient (CLI) | payer OTHER ==
[~2024-09-30] MED LIST changes: -ATOR40TA71 PO; +CEPH500B PO; -LEVO125T95 PO; +PANT40TA PO; -PRAZ1CAP5 PO
--- NOTE | 2024-10-04 08:25 | HMCSR ---
APPROVED REPORT Laterality: Bilateral Indications PVD VELOCITY AND DOPPLER WAVEFORM ANALYSIS TREND INVESTIGATOR (R) 115.8cm/sec, Biphasic, TREND INVESTIGATOR (L) 98.4cm/sec, Biphasic, Prof Fem Art. (R) 125.0cm/sec, Biphasic, Prof Fem Art. (L) 98.4cm/sec, Biphasic, Fem Art Prox. (R) 122.7cm/sec, Biphasic, Fem Art Prox. (L) 98.4cm/sec, Biphasic, Fem Art Mid. (R) 86.1cm/sec, Biphasic, Fem Art Mid. (L) 130.5cm/sec, Biphasic, Fem Art Dist (R) 164.8cm/sec, Biphasic, Fem Art Dist. (L) 145.2cm/sec, Biphasic, Pop Art(AK) (R) 79.9cm/sec, Biphasic, Pop Art (AK) (L) 80.8cm/sec, Biphasic, Pop Art (Fossa)(R) 80.0cm/sec, Biphasic, Pop Art (Fossa) (L) 52.0cm/sec, Biphasic, Pop Art(BK) (R) 60.0cm/sec, Biphasic, Pop Art (BK) (L) 50.2cm/sec, Biphasic, OPERATIONS INTERN Mid. (R) 80.0cm/sec, Biphasic, OPERATIONS INTERN Dist. (L) 88.8cm/sec, Biphasic, OPERATIONS INTERN Dist. (R) 80.7cm/sec, Biphasic, Per Art Dist. (L) cm/sec, Not Seen Per Art Dist. (R) cm/sec, Not Seen MIMI Dist. (L) 71.0cm/sec, Biphasic, MIMI Dist. (R) 71.8cm/sec, Biphasic, Technologist Impression Diffuse mild to moderate atherosclerosis throughout the bilateral lower extremities. Multiphasic waveforms seen in bilateral lower extremities. Bilateral Peroneal Arteries not seen.Technically difficult study
== END | disposition home or self-care (01) ==
LOC: SHCH 14:10
PROVIDERS: ATTEND Internal Medicine Cardiovascular Disease
DX: I70.203 Unspecified atherosclerosis of native arteries of extremities, bilateral legs (principal)
CPT/HCPCS: 93925